=== PATIENT | female | born 1940 | race Caucasian/White ===

== ENCOUNTER → 2016-02-29 | Outpatient (CLI) | payer MEDICARE ==
[~2016-02-29] MED LIST: APIX2.5T PO; DIVA250ER PO; ENOX100P SQ; KEPP750T PO; PROV100T10 PO
--- NOTE | 2016-02-29 15:20 | RADRPT ---
EXAM DATE/TIME: 02/29/2016 00:00 [facility] COMPARISON: No previous studies available for comparison. INDICATIONS : Dysphagia for 1 month. FLUORO TIME: 1.4 minutes IMAGE COUNT: 0 CONTRAST: Dose as prescribed by speech pathologist. MEDICAL HISTORY : Brain cancer. SURGICAL HISTORY : None. ENCOUNTER: Initial ACUITY: 1 month PAIN SCORE: 0/10 LOCATION: Esophagus. FINDINGS: A modified barium swallow was performed with speech pathology. Patient was given a variety of liquids to swallow. Cervical esophagus appears normal in motility and structure other than a questionable single episode of flash penetration For a full detailed report, see report by the speech pathologist. CONCLUSION: See speech pathology report. New Kahn MD on February 29, 2016 at 15:18 Board Certified Radiologist. This report was verified electronically.
== END ==
LOC: HRAD 14:07
PROVIDERS: ATTEND Physical Medicine & Rehabilitation
DX: R13.10 Dysphagia, unspecified (principal)
CPT/HCPCS: 74230; 92611; G8996; G8997; G8998

== ENCOUNTER → 2016-03-02 | Day surgery (SDC) | payer MEDICARE ==
[~2016-03-02] VITALS: Ht 162.6 cm; Wt 68.0 kg
[~2016-03-02] MED LIST changes: +CYCLOPENTOLATE HCL 1% OPHT SOLN 2 ML BTL ONE; +FLURBIPROFEN 0.03% OPHT SOLN 2.5 ML BTL ONE; +HYALURONIDASE/LIDOCAINE/EPINEPHRINE/BUPIVACAINE 4.5 ML SYR LEFT EYE ONE; +HYALURONIDASE/LIDOCAINE/EPINEPHRINE/BUPIVACAINE 6 ML SYR LEFT EYE ONE; +LIDOCAINE HCL 1% 20 ML VIAL ONE; +LIDOCAINE HCL 1% 30 ML VIAL ONE; +PHENYLEPHRINE HCL 10% OPTH SOLN 5 ML BTL ONE; +PROPARACAINE HCL 0.5% OPHT SOLN 15 ML BTL LEFT EYE ONE; +PROPOFOL 200 MG/20 ML AMP ONE; +SODIUM CHLORID 0.9% 500 ML INJ 500 ML ONE; +TROPICAMIDE 1% OPHT SOLN 15 ML BTL ONE; +TRYPAN BLUE 0.5 ML OPHT DYE SYRINGE LEFT EYE ONE
[2016-03-02] MEDS: PHENYLEPHRINE HCL 10% OPTH SOLN 5 ML BTL LEFT EYE SCH ×4 (08:20→08:35)
[2016-03-02] MEDS: CYCLOPENTOLATE HCL 1% OPHT SOLN 2 ML BTL LEFT EYE SCH ×4 (08:20→08:35)
[2016-03-02] MEDS: FLURBIPROFEN 0.03% OPHT SOLN 2.5 ML BTL LEFT EYE SCH ×4 (08:20→08:35)
[2016-03-02] MEDS: TROPICAMIDE 1% OPHT SOLN 15 ML BTL LEFT EYE SCH ×4 (08:20→08:35)
[2016-03-02 08:30] VITALS: PULSE 62
[2016-03-02 08:35] VITALS: BP 140/91; PULSE 71; RESP 18; TEMP 98.1; O2SAT 97
[2016-03-02] MEDS: TOBRAMYCIN/DEXAMETHASONE OPTH OINT 3.5 GM TUBE ONE ×2 (09:32→09:41)
[2016-03-02 10:30] VITALS: BP 140/72; PULSE 55; RESP 16; TEMP 98; O2SAT 99
--- NOTE | 2016-03-07 23:23 | MP ---
cc: ANTHONY TOLBERT M.D. [facility] #: [id number] DATE: 03/02/2016 PREOPERATIVE DIAGNOSIS: Visually significant cataract left eye. POSTOPERATIVE DIAGNOSIS: Visually significant cataract left eye. OPERATION: Phacoemulsification with posterior chamber lens implantation, left eye. SURGEON: Anthony Tolbert MD ANESTHESIA: Retrobulbar with MAC. COMPLICATIONS: None. PROCEDURE: After informed consent was obtained, the patient was brought into the operative suite and placed on appropriate monitors by the Anesthesia Service. The patient had received a prior retrobulbar injection of local anesthetic by the Anesthesia Service in the holding area. The patient's operative eye was then prepped and draped in the usual sterile fashion. A wire lid speculum was placed. A paracentesis incision was made in the peripheral cornea with a 1 mm reyna keratome. The anterior chamber was filled with viscoelastic. The anterior chamber was then entered through a stepped, clear corneal incision using a sharp 3 mm reyna keratome. A circular tear capsulorrhexis was then made with a bent needle cystitome. Following hydrodissection of the lens nucleus with balanced saline, phacoemulsification of the nucleus was performed using a modified chopping technique. The remaining cortex was removed with irrigation/aspiration. The prior two procedures were both performed using the handpieces of the [employer] phaco unit. The capsular bag was then filled with viscoelastic. The intraocular lens was then injected into the capsular bag and positioned. The type of intraocular lens and its power can be found elsewhere in this chart. The remaining viscoelastic was then removed from the anterior chamber with the IA handpiece. The anterior chamber was reformed with balanced saline. The wound was then closed securely with stromal hydration. It was found to be watertight to an intraocular pressure of at least 30 mmHg by palpation. A small amount of balanced salt solution was then removed through the paracentesis site and the intraocular pressure at the end of the case was approximately 20 by palpation. All drapes were then removed. TobraDex ointment was then placed in the eye, which was closed beneath a semi-pressure patch dressing. The patient tolerated this procedure well and left the operating room awake and alert. The patient is to follow-up in my office in the morning. ADDENDUM: Due to the patient's very cloudy cortical cataract, Vision Blue was used to stain the anterior capsule prior to capsulorrhexis. MD KESHAWN Jorgensen/BRIGHT /10:05 AM /11:18 PM
== END | disposition home or self-care (01) ==
LOC: CSDC 07:00
PROVIDERS: ATTEND Optometrist Occupational Vision
DX: H26.9 Unspecified cataract (principal)
CPT/HCPCS: 00142; 66984; J7040; V2632

== ENCOUNTER → 2016-12-13 | Outpatient (CLI) | payer MEDICARE ==
[~2016-12-13] MED LIST changes: -CYCLOPENTOLATE HCL 1% OPHT SOLN 2 ML BTL ONE; -ENOX100P SQ; -FLURBIPROFEN 0.03% OPHT SOLN 2.5 ML BTL ONE; +GADODIAMIDE PF 287 MG/ML 20 ML VIAL (for RAD MRI) IVCONTRAST ONE; -HYALURONIDASE/LIDOCAINE/EPINEPHRINE/BUPIVACAINE 4.5 ML SYR LEFT EYE ONE; -HYALURONIDASE/LIDOCAINE/EPINEPHRINE/BUPIVACAINE 6 ML SYR LEFT EYE ONE; -LIDOCAINE HCL 1% 20 ML VIAL ONE; -LIDOCAINE HCL 1% 30 ML VIAL ONE; +MODA2TAB PO; -PHENYLEPHRINE HCL 10% OPTH SOLN 5 ML BTL ONE; -PROPARACAINE HCL 0.5% OPHT SOLN 15 ML BTL LEFT EYE ONE; -PROPOFOL 200 MG/20 ML AMP ONE; -PROV100T10 PO; -SODIUM CHLORID 0.9% 500 ML INJ 500 ML ONE; -TROPICAMIDE 1% OPHT SOLN 15 ML BTL ONE; -TRYPAN BLUE 0.5 ML OPHT DYE SYRINGE LEFT EYE ONE
--- NOTE | 2016-12-14 10:01 | RADRPT ---
EXAM DATE/TIME: 12/13/2016 12:33 [place] Corrected on: December 14, 2016; [facility] COMPARISON: MRI BRAIN PERFUSION W CONTRAST, December 13, 2016, 12:33. MRI BRAIN W & W/O CONTRAST, October 04 14, 14:08. MRI brain and MRI perfusion performed on August 01, 2016 at [facility]. INDICATIONS : Mass. CONTRAST: 20 cc Omniscan (gadodiamide) IV MEDICAL HISTORY : Glioblastoma. SURGICAL HISTORY : Craniotomy. ENCOUNTER: Initial ACUITY: 1 day PAIN SCORE: 0/10 LOCATION: cranial TECHNIQUE: Multiplanar, multisequence MRI of the brain was performed both prior to and following the administrat ion of paramagnetic contrast. Significant motion is noted on all sequences however exam remains diagnostic. FINDINGS: CEREBRUM: A focal region of enhancement remains evident in the parasagittal region of the right parietal lobe. There is a little mass effect or significant change compared to the recent study performed at the [facility] in July of 2016. Significant cortical atrophy is identified overlying the area of enhancemen t. No new enhancing abnormalities are noted. Comparison MRI perfusion fails to reveal any significant increase in cerebral blood volume. WHITE MATTER: Generalized volume loss with diffuse T2 hyperintensity is evident. There is no evidence of restricted diffusion. POSTERIOR FOSSA: The cerebellum and brainstem are intact. The 4th ventricle is midline. The cerebellopontine angle is unremarkable. The cerebellar tonsils are normal in position. DIFFUSION IMAGING: No focal areas of restricted diffusion are seen. No evidence of acute infarction. EXTRACRANIAL: The visualized portions of the orbits and paranasal sinuses are unremarkable. POST-CONTRAST: No abnormal areas of parenchymal or dural enhancement. No evidence of blood-brain barrier breakdown. CONCLUSION: Persistent abnormal enhancement in the parasagittal region of the right parietal lobe corresponding t o the patient's treated glioblastoma. 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 No evidence of acute infarct, hemorrhage, additional mass or additional abnormal enhancement. Jame Benitez MD on December 14, 2016 at 9:18 Board Certified Radiologist. This report was verified electronically. Jame Benitez MD on December 14, 2016 at 14:10 Board Certified Radiologist. This report was verified electronically.
--- NOTE | 2016-12-14 10:03 | RADRPT ---
EXAM DATE/TIME: 12/13/2016 12:33 [facility] COMPARISON: MRI BRAIN W & W/O CONTRAST, December 13, 2016, 12:33. MRI perfusion of the brain dated August 01, 2016 performed at [facility] INDICATIONS : Mass. CONTRAST: 20 cc Omniscan (gadodiamide) IV MEDICAL HISTORY : Glioblastoma SURGICAL HISTORY : Craniotomy. ENCOUNTER: Initial ACUITY: 1 day PAIN SCORE: 0/10 LOCATION: cranial TECHNIQUE: Whole brain MR perfusion was performed. Parametric maps generated included time to peak, mean transi t time, cerebral blood volume and cerebral blood flow. FINDINGS: Enhancing lesion in the parasagittal region of the right parietal lobe remains evident. The MRI perfu tania continue to demonstrate decreased cerebral blood volume and cerebral blood flow in the enhancing region. CONCLUSION: Decreased cerebral blood volume is evident in the enhancing lesion in the parasagittal region of the right parietal lobe which is more characteristic of radionecrosis. Jame Benitez MD on December 14, 2016 at 9:59 Board Certified Radiologist. This report was verified electronically.
== END ==
LOC: HRAD 10:14
PROVIDERS: ATTEND Psychiatry & Neurology Vascular Neurology
DX: C71.4 Malignant neoplasm of occipital lobe (principal)
CPT/HCPCS: 70552; 70553; 76937; A9579

== ENCOUNTER → 2017-08-01 | Outpatient (CLI) | payer MEDICARE ==
--- NOTE | 2017-08-01 16:33 | RADRPT ---
EXAM DATE: 08/01/2017 3:41 PM EDT AGE/SEX: 76 years / Female INDICATIONS: . Glioblastoma CLINICAL DATA: This is the patient's initial encounter. Patient reports that signs and symptoms have been present for 1 day and indicates a pain score of 0/10. MEDICAL/SURGICAL HISTORY: . Glioblastoma . Fabio filter Craniotomy COMPARISON: [facility] [place], MRI BRAIN W & W/O CONTRAST, 12/13/2016. . TECHNIQUE: Multiplanar, multisequence examination of the brain was performed without and with 20 ml O mniscan (gadodiamide) contrast as a single exam dose. FINDINGS: Current study is very limited due to motion artifact on just about every pulse sequence. Cerebrum: There is some cortical atrophy. Ventricular system is also mildly prominent, asymmetricall y so posteriorly in the body and occipital horn of the right lateral ventricle probably representing some vacuo dilatation due to regional atrophy. Focal area of gliosis) midline in the posterior high r ight parietal convexity with some mild increased regional T1 signal intensity. This is less prominent when compared to the prior.. I also believe the regional enhancement seen previously is less promine nt when compared to the prior The pituitary gland and suprasellar cistern are normal in configuration . White Matter: No significant signal abnormalities are seen in the white matter. Posterior Fossa: The cerebellum and brainstem are intact. The 4th ventricle is midline. The cerebel lopontine angle is unremarkable. The cerebellar tonsils are normal in position. Diffusion Imaging: No focal areas of restricted diffusion are seen. No evidence of acute infarction . Extracranial: The visualized portions of the orbits and paranasal sinuses are unremarkable. Post Contrast: . Mild enhancement in the posterior para midline right high convexity parietal region . I believe this is less prominent when compared to the prior CONCLUSION: 1. Limited examination due to motion artifact on every pulse sequence. 2. There appear to be stable encephalomalacic changes in the posterior high right parietal region wi th ex vacuo dilatation of the adjacent ventricular system. 3. In addition, focal area of ring enhancement paramidline in the posterior high parietal right conv exity I believe is less prominent when compared to the prior and probably represents some resolving r adionecrosis. No definitive findings of tumoral recurrence on the current limited exam. Electronically signed by: Trevor Arreaga MD 08/01/2017 4:31 PM EDT
--- NOTE | 2017-08-02 08:32 | RADRPT ---
EXAM DATE: 08/01/2017 8:27 PM EDT AGE/SEX: 76 years / Female INDICATIONS: . Glioblastoma. CLINICAL DATA: This is the patient's subsequent encounter. Patient reports that signs and symptoms h ave been present for 4 - 6 months and indicates a pain score of 2/10. MEDICAL/SURGICAL HISTORY: . glioblastoma Craniotomy. Fabio filter. COMPARISON: No prior exams available for comparison. TECHNIQUE: Whole brain MRI perfusion was performed with 20 ml Omniscan (gadodiamide) contrast as a s obi exam dose. Parametric maps generated included time to peak, mean transit time, cerebral blood volume and cerebral blood flow. FINDINGS: The cerebral blood volume and cerebral blood flow map demonstrates a small focal linear area of incre ased hyperperfusion at the site of the abnormality. There is prominent restricted diffusion which wou ld favor posttherapy change rather than recurrent neoplasm. Considering the clinical findings short-t erm follow-up with repeat examination in 3 months is recommended. CONCLUSION: 1. 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 Short-term follow-up is recommended. Electronically signed by: Booker Jurado MD 08/02/2017 8:31 AM EDT
== END ==
LOC: HRAD 13:09
PROVIDERS: ATTEND Psychiatry & Neurology Vascular Neurology
DX: C71.4 Malignant neoplasm of occipital lobe (principal)
CPT/HCPCS: 70552; 70553; A9579